=== PATIENT | male | born 1935 | race Caucasian/White ===

== ENCOUNTER 2018-02-07 14:52 | Outpatient (CLI) | payer MEDICARE ==
[~2018-02-07 14:52] MED LIST: Iopamidol 370 76% 100 ML VIAL ONE
== END 2018-02-07 14:53 | disposition home or self-care (01) ==
LOC: BICRAD 14:52
PROVIDERS: ATTEND Urology
DX: N28.89 Other specified disorders of kidney and ureter (principal); C80.1 Malignant (primary) neoplasm, unspecified; N28.1 Cyst of kidney, acquired; N32.89 Other specified disorders of bladder
CPT/HCPCS: 74178

== ENCOUNTER 2020-03-31 09:54 | Outpatient (CLI) | payer MEDICARE ==
--- NOTE | 2020-03-31 12:24 | CT ---
CT abdomen without and with IV contrast HISTORY: Renal mass. Follow-up. COMPARISON: 02/07/2018. FINDINGS: Each renal collecting system is decompressed without stone evident. No filling defects are apparent within the renal collecting systems or proximal ureters on the delayed images. The pelvis was not imaged. The lobular heterogeneous enhancing mass at the medial aspect of the superior pole right kidney is ag ain demonstrated. It is unchanged in size and appearance when reviewed closely with the previous study. It is 7.1 cm length by 6.5 cm x 6.2 cm transverse and AP diameters on the axial images. Low-de nsity central component likely represents necrosis. The 2.8 cm cyst at the posterior cortex of the inferior pole left kidney is stable. 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 There is calcification within the arterial structures with mild fusiform ectasia of the lower abdomin al aorta. Liver and spleen have a normal appearance. Pancreas unremarkable. IMPRESSION : Stable CT size and appearance of the enhancing mass at the superior pole of the right kidney. No new solid masses. Left renal cyst is stable.
[2020-03-31] MEDS ORDERED: Iopamidol-370 76% 500 ML 1 ML ONE (14:00)
== END 2020-03-31 09:55 | disposition home or self-care (01) ==
LOC: BICCT 09:54
PROVIDERS: ATTEND Urology
DX: C67.4 Malignant neoplasm of posterior wall of bladder (principal); G93.9 Disorder of brain, unspecified
CPT/HCPCS: 74170

== ENCOUNTER 2024-11-04 09:08 | Day surgery (SDC) | payer MEDICARE ==
[2024-10-28 12:05] VITALS: BMI 30.8
[2024-11-04] MEDS ORDERED: Famotidine/PF 20 mg/2ml Vial ONE (11:14)
[2024-11-04] MEDS ORDERED: Sodium Chloride 0.9% 100 ML ONE ×2 (12:06→13:09)
[2024-11-04] MEDS ORDERED: cefTRIAXone (ROCEPHIN) 2 GM VIAL ONE ×2 (12:06→13:09)
[2024-11-04] MEDS ORDERED: Lidocaine 1% MPF 2 ML VIAL ONE (12:06)
[2024-11-04] MEDS ORDERED: mitoMYcin 40 MG in Sodium Chloride 0.9% 40 ML IV SCH (12:45)
[2024-11-04] MEDS ORDERED: PROPOFOL 20 ML ONE (12:53)
[2024-11-04] MEDS ORDERED: fentaNYL 50 mcg/mL 1 mL Vial ONE ×3 (12:53→14:51)
[2024-11-04] MEDS ORDERED: Iopamidol 30 ML ONE (12:53)
[2024-11-04] MEDS ORDERED: PHENYLEPHRINE-NS 100 MCG/ML 10 ML SYRINGE ONE (12:54)
[2024-11-04] MEDS ORDERED: Lidocaine 2% PF 5 ML VIAL ONE (12:54)
[2024-11-04] MEDS ORDERED: Rocuronium Bromide 10 MG/ML (10ML VIAL) ONE (12:56)
[2024-11-04] MEDS ORDERED: mitoMYcin 40 MG in Sodium Chloride 0.9% 40 ML I-VESIC SCH (13:15)
[2024-11-04] MEDS ORDERED: Ondansetron PF 4 MG/2 ML Vial ONE (13:40)
[2024-11-04] MEDS ORDERED: SUGAMMADEX SODIUM 200 MG/2 ML VIAL ONE ×2 (13:40→14:11)
[2024-11-04] MEDS ORDERED: Glycopyrrolate 0.2 MG/ML 5 ML SYRINGE ONE (14:09)
[2024-11-04] MEDS ORDERED: Bacitracin 1 PK ONE (14:19)
[2024-11-04] MEDS ORDERED: Dexamethasone 4 mg/ml Vial ONE (14:23)
[2024-11-04] MEDS ORDERED: Labetalol HCl 100 MG/20 ML VIAL ONE (15:02)
== END 2024-11-04 17:42 | disposition home or self-care (01) ==
LOC: SDC 09:08
PROVIDERS: ATTEND Urology
PROC: 0TBB8ZZ Excision of Bladder, Via Natural or Artificial Opening Endoscopic (ICD-10-PCS; principal; 2024-11-04)
DX: N30.20 Other chronic cystitis without hematuria (principal); N32.89 Other specified disorders of bladder; I11.0 Hypertensive heart disease with heart failure; I50.9 Heart failure, unspecified; I48.91 Unspecified atrial fibrillation; E78.00 Pure hypercholesterolemia, unspecified; E03.9 Hypothyroidism, unspecified; Z88.0 Allergy status to penicillin; Z79.82 Long term (current) use of aspirin; Z79.899 Other long term (current) drug therapy
CPT/HCPCS: 52234; 74420; J0696; J1100; J2405; J2704; J3010; J3490; J9280; Q9967; 88305